=== PATIENT | male | born 1975 | race Caucasian/White ===

== ENCOUNTER → 2017-04-01 | Day surgery (SDC) | payer OTHER ==
[~2017-04-01] VITALS: Ht 177.8 cm; Wt 97.5 kg
[~2017-04-01] MED LIST: CELE100C PO; GLYCOPYRROLATE INJ 0.2 MG/ML 2 ML VIAL As Ordered ONE; HYDROmorphone HCL 1 MG/ML SYRINGE (J1170) As Ordered ONE; IBUPROFEN 800 MG TAB As Ordered ONE; IBUPROFEN 800 MG TAB PO PRN; LABETALOL HCL 100 MG/20 ML VIAL As Ordered ONE; LIDOCAINE 2% INJ 100 MG/5 ML SDV (FOR ANES.) As Ordered ONE; LIDOCAINE W/EPINEPHRINE 1% 20ML VIAL As Ordered ONE; LISI10TA4 PO; LR 1,000 ML IV ONE; LR 1,000 ML IV SCH; METHYLENE BLUE 0.5% (5MG/ML) 10 ML AMP (PROVAYBLUE)(Q9968 PER 1MG) As Ordered ONE; METOCLOPRAMIDE INJ 10MG/2ML VIAL (J2765) As Ordered ONE; MIDAZOLAM INJ 2 MG/2 ML VIAL (J2250) As Ordered ONE; NEOSTIGMINE 1MG/ML 5 ML SYRINGE (J2710) As Ordered ONE; ONDANSETRON 4MG/2ML VIAL (J2405) As Ordered ONE; ONDANSETRON 4MG/2ML VIAL (J2405) IV PRN; OXYMETAZOLINE NASAL SPRAY (AFRIN) As Ordered ONE; PERCOCET 5MG/325MG TAB As Ordered ONE; PERCOCET 5MG/325MG TAB PO PRN; PROPOFOL 200 MG/20 ML VIAL As Ordered ONE; ROCURONIUM BROMIDE 50 MG/5 ML VIAL/SYRINGE As Ordered ONE; dexameTHASONE 4 MG/ML 1ML VIAL (J1100) As Ordered ONE; fentaNYL 100 MCG/2 ML INJECTION (J3010) IV PRN; fentaNYL 250 MCG/5 ML INJECTION (J3010) As Ordered ONE
[2017-04-01] MEDS: HYDROmorphone HCL 1 MG/ML SYRINGE (J1170) IV PRN ×5 (14:56→15:30)
[2017-04-01 16:40] VITALS: BP 134/87
--- NOTE | 2017-04-06 07:01 | RO ---
DATE OF PROCEDURE: 04/01/2017 PREOPERATIVE DIAGNOSIS: Deviated septum. POSTOPERATIVE DIAGNOSIS: Deviated septum. PROCEDURE: Revision septoplasty and turbinate reduction. SURGEON: Dr. Osvaldo Polanco FLAKE DRIER: ANESTHESIA: General endotracheal. 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 DESCRIPTION OF PROCEDURE: Satisfactory general endotracheal anesthesia administered. Pharyngeal pack placed. The nose was prepared for surgery by placing cotton-soaked pledgets with Afrin solution to nasal cavity bilaterally. 1% Xylocaine with 1:100,000 epinephrine was used to inject into the nasal septum and inferior turbinates. He had previous septoplasty and the greatest part of his deformity was the caudal septum. A hemitransfixion incision was made on the left side of the nasal septum. A mucoperichondrial flap was carefully elevated on the left side of the septum. As the flap was developed posteriorly, it became apparent that there was absent cartilage in bone in-between the two leaves of the mucoperichondrium so care to be taken to dissect the flaps and it was possible to create an intact mucoperichondrial flap on the right side while the left was developed. First a strip of cartilage was resected from the floor thus creating a swinging door. Then small strips of cartilage were taken from the dorsal part of the septum as well as the caudal septum to try to break the spring and mobilize it back to the midline. Care was taken not to over excessively remove cartilage to fear of creating a collapsed nasal valve or a loss of columella support. As strips of cartilage were removed, the septum was re-examined to see that a substantial improvement had been made. At some point, it was recognized that the septum had been nicely mobilized to the midline and by continued to try to weaken the caudal septum, it was elected to stop at this point. Incision was closed using an interrupted #4-0 Chromic suture and a plain suture of #5-0 was placed in a back and fourth fashion in the two leaves of the mucoperichondrium to oppose them. Next the inferior turbinates were medially in-fractured. They were laterally out-fractured and a 15 blade was used to make an incision on the anterior tip of each inferior turbinate. The microdebrider was inserted in this mucoperichondrial tunnel that was created and the turbinate bone was partially resected. The turbinate was then outfractured completely. Toth splints were then placed in the nose sewn to the columella with #2-0 Prolene suture. The pharyngeal pack was removed with suction. The patient was then awakened, extubated, and sent to recovery in satisfactory condition. He will be discharged home on for pain and doxycycline 100 mg twice daily. He will be seen in the office in two days for splint removal.
== END | disposition home or self-care (01) ==
LOC: M SDC 11:59
PROVIDERS: ATTEND Specialist
DX: J34.2 Deviated nasal septum (principal); I10 Essential (primary) hypertension; M12.9 Arthropathy, unspecified; F17.220 Nicotine dependence, chewing tobacco, uncomplicated; Z79.899 Other long term (current) drug therapy
CPT/HCPCS: 30140; 30520; 88300; J1100; J1170; J2250; J2405; J2710; J2765; J3010; Q9968

== ENCOUNTER → 2018-08-17 | Outpatient (CLI) | payer OTHER ==
[~2018-08-17] MED LIST changes: -CELE100C PO; +CONRAY-43 43% 50ML VIAL (Q9960) As Ordered; -GLYCOPYRROLATE INJ 0.2 MG/ML 2 ML VIAL As Ordered ONE; -HYDROmorphone HCL 1 MG/ML SYRINGE (J1170) As Ordered ONE; -IBUPROFEN 800 MG TAB As Ordered ONE; -IBUPROFEN 800 MG TAB PO PRN; -LABETALOL HCL 100 MG/20 ML VIAL As Ordered ONE; -LIDOCAINE 2% INJ 100 MG/5 ML SDV (FOR ANES.) As Ordered ONE; -LIDOCAINE W/EPINEPHRINE 1% 20ML VIAL As Ordered ONE; -LISI10TA4 PO; -LR 1,000 ML IV ONE; -LR 1,000 ML IV SCH; -METHYLENE BLUE 0.5% (5MG/ML) 10 ML AMP (PROVAYBLUE)(Q9968 PER 1MG) As Ordered ONE; -METOCLOPRAMIDE INJ 10MG/2ML VIAL (J2765) As Ordered ONE; -MIDAZOLAM INJ 2 MG/2 ML VIAL (J2250) As Ordered ONE; -NEOSTIGMINE 1MG/ML 5 ML SYRINGE (J2710) As Ordered ONE; -ONDANSETRON 4MG/2ML VIAL (J2405) As Ordered ONE; -ONDANSETRON 4MG/2ML VIAL (J2405) IV PRN; -OXYMETAZOLINE NASAL SPRAY (AFRIN) As Ordered ONE; -PERCOCET 5MG/325MG TAB As Ordered ONE; -PERCOCET 5MG/325MG TAB PO PRN; +PROHANCE 279.3MG/ML 5ML VIAL (A9576) As Ordered; -PROPOFOL 200 MG/20 ML VIAL As Ordered ONE; -ROCURONIUM BROMIDE 50 MG/5 ML VIAL/SYRINGE As Ordered ONE; -dexameTHASONE 4 MG/ML 1ML VIAL (J1100) As Ordered ONE; -fentaNYL 100 MCG/2 ML INJECTION (J3010) IV PRN; -fentaNYL 250 MCG/5 ML INJECTION (J3010) As Ordered ONE
== END ==
LOC: M RADPRO 06:41
DX: M25.852 Other specified joint disorders, left hip (principal); M94.252 Chondromalacia, left hip
CPT/HCPCS: 27093

== ENCOUNTER → 2018-11-04 | Outpatient (CLI) | payer OTHER ==
[~2018-11-04] MED LIST changes: +CELE100C PO; -CONRAY-43 43% 50ML VIAL (Q9960) As Ordered; +CONRAY-43 43% 50ML VIAL (Q9960) As Ordered ONE; +LIDOCAINE 1% MDV 20ML VIAL As Ordered ONE; +LISI10TA4 PO; -PROHANCE 279.3MG/ML 5ML VIAL (A9576) As Ordered; +TRIAMCINOLONE ACETONIDE SUSP 40 MG/ML VIAL (J3301) As Ordered ONE
--- NOTE | 2018-11-04 17:58 | REP ---
Left hip injection The procedure was performed under the direct supervision of Dr. Veras. The benefits and risks including but not limited to pain infection and bleeding and anaphylaxis were explained to the patient and informed consent was obtained. The left femoral neck was localized using fluoroscopic guidance. The skin was prepped and draped in a sterile fashion. 1% lidocaine was used as a local anesthetic. Using fluoroscopic guidance a 22-gauge spinal needle was inserted and advanced to the femoral neck. 0.5 ml of Conray 43 was injected to verify placement. 10 ml of a solution containing 9 ml of 1% Xylocaine and 1 ml of Kenalog 40 mg was injected. The needle was then removed. The patient tolerated the procedure well and there were no immediate complications. Less than six seconds of fluoro time was utilized for this procedure. Reviewed by BIN Contreras 11/04/2018 03:45 P Electronically Signed by Kenji Veras MD 11/04/2018 05:49 P
== END ==
LOC: M RADPRO 10:02
PROVIDERS: ATTEND Orthopaedic Surgery
DX: M25.852 Other specified joint disorders, left hip (principal); M24.152 Other articular cartilage disorders, left hip
CPT/HCPCS: 20610; 77002; J3301; Q9960

== ENCOUNTER 2019-01-23 22:35 | Emergency (ER) | payer OTHER ==
[~2019-01-23] VITALS: Ht 177.8 cm; Wt 97.7 kg
[2019-01-23 22:35] VITALS: BP 145/91
[~2019-01-23 22:35] MED LIST changes: -CONRAY-43 43% 50ML VIAL (Q9960) As Ordered ONE; -LIDOCAINE 1% MDV 20ML VIAL As Ordered ONE; -TRIAMCINOLONE ACETONIDE SUSP 40 MG/ML VIAL (J3301) As Ordered ONE
[2019-01-23] MEDS ORDERED: PRIL20TA2 PO (22:42)
[2019-01-23] MEDS ORDERED: ROBA500T PO (23:22)
[2019-01-23] MEDS ORDERED: PRED10TA2 PO (23:22)
[2019-01-23] MEDS ORDERED: METHOCARBAMOL 500 MG TAB PO ONE (23:30)
[2019-01-23] MEDS ORDERED: predniSONE 20 MG TAB PO ONE (23:30)
== END 2019-01-23 23:30 | disposition home or self-care (01) ==
LOC: M ED 22:35
DX: S39.012A Strain of muscle, fascia and tendon of lower back, initial encounter (principal); X50.0XXA Overexertion from strenuous movement or load, initial encounter; Y92.9 Unspecified place or not applicable; Y93.89 Activity, other specified; Y99.8 Other external cause status; Z79.899 Other long term (current) drug therapy